=== PATIENT | female | born 2000 | race Caucasian/White ===

== ENCOUNTER 2023-09-30 11:05 | Outpatient (CLI) | payer SELFPAY ==
--- NOTE | ~2023-09-30 | US_ITS ---
EXAMINATION: US pelvic complete DATE: 09/30/2023 11:28 INDICATION: Pelvic pain TECHNIQUE: Multiple transabdominal sonographic images of the pelvis were obtained. COMPARISON: None. FINDINGS: The uterus measures 6.5 x 3.1 x 5.3 cm. The endometrial complex measures 8 mm in thickness. There is a linear echogenic and shadowing IUD in expected position within the endometrial canal. The right ov gena measures 3.5 x 2.1 x 3.6 cm. The left ovary measures 3.6 x 2.0 x 3.3 cm. There is no free fluid i n the pelvis. IMPRESSION: 1. IUD in expected position within the endometrial canal. Otherwise unremarkable pelvic ultrasound. Reviewed, dictated and finalized at location A. IMPRESSION: 1. IUD in expected position within the endometrial canal. Otherwise unremarkabl e pelvic ultrasound.
== END 2023-09-30 11:06 ==
PROVIDERS: PCP Nurse Practitioner; Visit Provider Nurse Practitioner
DX: R10.2 Pelvic and perineal pain (principal); Z97.5 Presence of (intrauterine) contraceptive device
CPT/HCPCS: 76856

== ENCOUNTER 2025-01-09 18:24 | Emergency (ER) | payer BC, SELFPAY ==
[2025-01-09 18:31] VITALS: BP 116/88; PULSE 77; RESP 16; TEMP 36.6; O2SAT 98
--- NOTE | 2025-01-09 18:49 | ED.BACK ---
HPI - Back Pain/Injury General Chief Complaint: Back Pain/Injury Stated Complaint: Back Pain Time Seen by Provider: 01/09/25 18:32 Source: patient and RN notes reviewed Mode of arrival: ambulatory Limitations: no limitations History of Present Illness HPI Narrative: 24 year old female patient presents today complaining of midline low back pain that started approximately 2 hours prior to arrival. Pain started suddenly when she was lifting a putting down a large bag at home. Denies radiation of the pain. Denies numbness or tingling in the extremities or genitalia. No loss of bowel or bladder control. Currently rates her pain 5/10, which increases with movement. She has taken some ibuprofen and use to lidocaine patch, which does provide some mild relief of symptoms. Related Data Allergies Allergy/AdvReac Type Severity Reaction Status Date / Time No Known Allergies Allergy Verified 01/09/25 18:32 PMFSH Comments At time of signature, I have reviewed and agree with nursing past medical, surgical, social and family history unless otherwise noted. Please see nursing chart for further information. There is no relevant family history pertinent to the presenting complaint Exam Narrative: GENERAL: Well-appearing, well-nourished, and in no acute distress. HEAD: Normocephalic, atraumatic. EYES: EOMI. No redness or drainage. Conjunctivae normal. ENT: Mucous membranes pink and moist. NECK: Normal AROM. CHEST: No respiratory distress. MUSCULOSKELETAL: No bony tenderness of the spine. Mild tenderness of the left lumbar paraspinal muscles. Distal sensation intact. Saddle sensation intact. 5/5 strength in BLE EXTREMITIES: Normal range of motion. No edema. SKIN: Warm, dry, no rash. Capillary refill normal. Normal skin turgor. NEURO: No focal deficits. Alert and oriented x3. Gait steady. PSYCH: Normal affect. No signs of depression or anxiety. Course Course Level of Care: Express Care Visit Vital Signs Vital signs: Vital Signs Temperature 97.8 F 01/09/25 18:31 Pulse Rate 77 01/09/25 18:31 Respiratory Rate 16 01/09/25 18:31 Blood Pressure 116/88 01/09/25 18:31 Pulse Oximetry 98 01/09/25 18:31 Temperature 97.8 F 01/09/25 18:31 Pulse Rate 77 01/09/25 18:31 Respiratory Rate 16 12/01/25 18:31 Blood Pressure 116/88 12/01/25 18:31 Pulse Oximetry 98 01/09/25 18:31 reviewed MDM MDM Narrative Medical decision making narrative: 24 year old female patient presents today complaining of midline low back pain that started approximately 2 hours prior to arrival. Pain started suddenly when she was lifting a putting down a large bag at home. Denies radiation of the pain. Denies numbness or tingling in the extremities or genitalia. No loss of bowel or bladder control. Currently rates her pain 5/10, which increases with movement. She has taken some ibuprofen and use to lidocaine patch, which does provide some mild relief of symptoms. Upon exam, No bony tenderness of the spine. Mild tenderness of the left lumbar paraspinal muscles. Neurovascularly intact. Symptoms are likely due to low back strain. Prescriptions for Flexeril and Medrol dose pack sent to pharmacy. Patient will start the Flexeril today in the Medrol Dosepak in a few days if symptoms do not seem to be improving. Discussed no heavy lifting, jumping, twisting or anything the irritates the back. Ice today and heat tomorrow. Patient agrees with plan. Vital signs stable. Anticipatory guidance given. Differential Diagnosis Differential Diagnosis: Low back strain, sciatica, bulging disc Critical Care Time Critical Care Time Critical Care Time: No Discharge Plan Discharge Clinical Impression: Strain of lumbar region Qualifiers: Encounter type: initial encounter Qualified Code(s): S39.012A - Strain of muscle, fascia and tendon of lower back, initial encounter Patient Disposition: Home Condition: Stable Instructions: Low Back Strain (ED), Lower Back Exercises (ED) Additional Instructions: Please take the cyclobenzaprine as prescribed. Do not drive within 8 hours of taking the Flexeril as it can make you drowsy. You may continue Tylenol or ibuprofen for discomfort as well. If symptoms are not improving after 48 hours, you may start the Medrol Dosepak and take as directed. Follow-up with your PCP in 4-5 days if symptoms do not seem to be improving. Go to the ER immediately if symptoms worsen to include numbness or tingling in the legs or genitalia, loss of bowel or bladder control. Patient Language: Portuguese Prescriptions: New cyclobenzaprine 10 mg tablet 10 mg PO TID PRN (Reason: muscle spasm) Qty: 20 0RF methylprednisolone [Medrol (Ankur)] 4 mg tablets,dose pack See Rx Instructions .ROUTE .COMPLEX Qty: 21 0RF Rx Instructions: orally per package directions Follow-up/Referrals: PHYSICIAN,CORPORATE QUALITY MANAGER [Primary Care Provider, Internal Medicine] Time of Disposition: 18:49
== END 2025-01-09 18:50 | disposition home or self-care (01) ==
PROVIDERS: Emergency Provider Nurse Practitioner
DX: S39.012A Strain of muscle, fascia and tendon of lower back, initial encounter (principal); X50.9XXA Other and unspecified overexertion or strenuous movements or postures, initial encounter
CPT/HCPCS: 99203; G0463